=== PATIENT | female | born 1950 | race Caucasian/White ===

== ENCOUNTER 2016-08-09 14:00 | Outpatient (RCR) | payer MEDICARE, OTHER ==
[~2016-08-09 14:00] MED LIST: 00186-0372-20 IH; ACIPHEX20 MG PO; ADDERALL10 MG PO; ALBUTEROL0.83 MG/ML IH; AMOXICILLIN 50500 MG PO; AMOXICILLIN 8751 TAB PO; AMOXICILLIN875 MG PO; ATORVASTATIN; BACTROBAN 22GM22 GM TP; CELEXA40 MG PO; CLARITIN; DIFLUCAN150 MG PO; ENBREL25 MG SC; FLEXERIL10 MG PO; FLUOXETINE; FOLIC ACID0.4 MG PO; IRON324 M1 PO; LEVOTHYROXINE0.1 MG PO; LIPITOR 10MG10 MG PO; LORTAB 7.5/5001 TAB; MELAT3MGTAB PO; METHOTREXA2.5 MG/TAB PO; MOBIC15 MG PO; NORCO 325 MG-7.1 TAB PO; PEPCID40 MG PO; PERCOCET 325 MG1 TA2 PO; PERCOCET 5/321 UDTAB PO; PREDNISONE10 MG PO; PRIL40 PO; PROTONIX20 MG PO; PROZAC20 MG PO; SEPTRA DS 8001 TAB PO; SINGULAIR; SINGULAIR 110 MG/TAB PO; SINGULAIR10 MG PO; STRATTERA PO; SYNTHROID0.075 MG PO; SYNTHROID0.088 MG/T PO; TESSALON P100 MG/CAP PO; TOPAMAX25 M1 PO; TOPIRAMATE; TYLENOL 500MG500 MG PO; VERAPAMIL; VERAPAMIL ER240 MG PO; VERAPAMIL180 MG/TAB PO; VITAMIN C500 MG PO; ZINC LOZENGES1 LOZ MM; ZOMIG 2.5MG2.5 MG PO; [UNRECOGNIZED DRUG - OTHER]; [UNRECOGNIZED DRUG - REMARK]
== END 2016-08-31 10:43 | disposition still patient (30) ==
LOC: WSPT 14:00
DX: M54.5 Low back pain (principal)
CPT/HCPCS: G8978-GP; G8979-GP; G8980-GP

== ENCOUNTER → 2016-09-26 | Outpatient (CLI) | payer MEDICARE, OTHER ==
[~2016-09-26] MED LIST changes: +FLEXERIL 1010 MG/TAB PO; +MINOCYCLIN100 MG/CAP PO; +MOBIC15 MG; +PRILOSEC 20MG20 MG PO; +TIROSINT88 MC1 PO; +VERELAN240 MG PO; +WELLBUTRIN XL300 M1 PO; +ZOFRAN 4MG T4 MG/TAB PO
== END ==
LOC: ZCOL.LAB 16:15
DX: Z11.2 Encounter for screening for other bacterial diseases (principal)

== ENCOUNTER → 2016-12-05 | Outpatient (CLI) | payer MEDICARE, OTHER | LOC: BHSO 11:03 | DX: F33.1 Major depressive disorder, recurrent, moderate (principal) | CPT/HCPCS: 90791-AI ==

== ENCOUNTER → 2017-01-03 | Outpatient (CLI) | payer MEDICARE, OTHER | LOC: BHSO 09:58 | DX: F33.41 Major depressive disorder, recurrent, in partial remission (principal) ==

== ENCOUNTER → 2017-02-27 | Outpatient (CLI) | payer MEDICARE, OTHER | LOC: ZCOL.LAB 14:30 | DX: Z01.818 Encounter for other preprocedural examination (principal); Z86.14 Personal history of Methicillin resistant Staphylococcus aureus infection ==

== ENCOUNTER 2017-03-02 05:32 | Day surgery (SDC) | payer MEDICARE, OTHER ==
[~2017-03-02] VITALS: Ht 165.1 cm; Wt 87.3 kg
[2017-03-02] VITALS (7 sets, daily range): BP systolic 105–129; BP diastolic 50–75; PULSE 56–71; TEMP 97.7
[~2017-03-02 05:32] MED LIST changes: -FLEXERIL 1010 MG/TAB PO; -MINOCYCLIN100 MG/CAP PO; -MOBIC15 MG; -PRILOSEC 20MG20 MG PO; -TIROSINT88 MC1 PO; -VERELAN240 MG PO; -WELLBUTRIN XL300 M1 PO; -ZOFRAN 4MG T4 MG/TAB PO
[2017-03-02] MEDS ORDERED: PRILOSEC 20MG20 MG PO (05:57)
[2017-03-02] MEDS ORDERED: TIROSINT88 MC1 PO (05:57)
[2017-03-02] MEDS ORDERED: MINOCYCLIN100 MG/CAP PO ×2 (05:58→07:54)
[2017-03-02] MEDS ORDERED: LIPITOR 10MG10 MG PO (05:58)
[2017-03-02] MEDS ORDERED: SINGULAIR 110 MG/TAB PO (05:59)
[2017-03-02] MEDS ORDERED: MOBIC15 MG (05:59)
[2017-03-02] MEDS ORDERED: ZOMIG 2.5MG2.5 MG PO (06:00)
[2017-03-02] MEDS ORDERED: VERELAN240 MG PO (06:01)
[2017-03-02] MEDS ORDERED: WELLBUTRIN XL300 M1 PO (06:01)
[2017-03-02] MEDS ORDERED: FLEXERIL 1010 MG/TAB PO (06:02)
[2017-03-02] MEDS ORDERED: NORCO 325 MG-7.1 TAB PO (07:53)
[2017-03-02] MEDS ORDERED: ZOFRAN 4MG T4 MG/TAB PO (07:54)
== END 2017-03-02 10:20 | disposition home or self-care (01) ==
LOC: SDCO 05:32
DX: T81.4XXA Infection following a procedure, initial encounter (principal); M86.171 Other acute osteomyelitis, right ankle and foot; L97.519 Non-pressure chronic ulcer of other part of right foot with unspecified severity; Z98.1 Arthrodesis status; M06.9 Rheumatoid arthritis, unspecified; J45.909 Unspecified asthma, uncomplicated; M79.7 Fibromyalgia; I10 Essential (primary) hypertension; E78.00 Pure hypercholesterolemia, unspecified; E07.9 Disorder of thyroid, unspecified; Z96.651 Presence of right artificial knee joint; Z80.9 Family history of malignant neoplasm, unspecified; Z86.14 Personal history of Methicillin resistant Staphylococcus aureus infection
CPT/HCPCS: J0690; J2250; J2405; J2704; J3010; J7120

== ENCOUNTER → 2017-03-08 | Outpatient (CLI) | payer MEDICARE, OTHER ==
[~2017-03-08] MED LIST changes: +FLEXERIL 1010 MG/TAB PO; +MINOCYCLIN100 MG/CAP PO; +MOBIC15 MG; +PRILOSEC 20MG20 MG PO; +TIROSINT88 MC1 PO; +VERELAN240 MG PO; +WELLBUTRIN XL300 M1 PO; +ZOFRAN 4MG T4 MG/TAB PO
== END ==
LOC: BHSO 09:59
DX: F33.42 Major depressive disorder, recurrent, in full remission (principal)

== ENCOUNTER → 2017-05-09 | Outpatient (CLI) | payer MEDICARE, OTHER | LOC: MC.RAD 08:32 | DX: Z12.31 Encounter for screening mammogram for malignant neoplasm of breast (principal) ==

== ENCOUNTER → 2017-07-05 | Outpatient (CLI) | payer MEDICARE, OTHER | LOC: BHSO 08:28 | DX: F33.42 Major depressive disorder, recurrent, in full remission (principal) | CPT/HCPCS: G0463 ==

== ENCOUNTER → 2017-07-19 | Outpatient (CLI) | payer MEDICARE, OTHER | LOC: ZCOL.LAB 15:56 | DX: Z01.812 Encounter for preprocedural laboratory examination (principal); Z86.14 Personal history of Methicillin resistant Staphylococcus aureus infection ==

== ENCOUNTER → 2018-01-03 | Outpatient (CLI) | payer MEDICARE, OTHER | LOC: BHSO 10:02 | DX: F33.42 Major depressive disorder, recurrent, in full remission (principal) | CPT/HCPCS: G0463 ==

== ENCOUNTER → 2018-04-04 | Outpatient (CLI) | payer MEDICARE, OTHER | LOC: BHSO 09:18 | DX: F33.42 Major depressive disorder, recurrent, in full remission (principal) | CPT/HCPCS: G0463 ==

== ENCOUNTER → 2018-06-06 | Outpatient (CLI) | payer MEDICARE, OTHER | LOC: BHSO 09:25 | DX: F41.1 Generalized anxiety disorder (principal) | CPT/HCPCS: G0463 ==

== ENCOUNTER → 2018-08-28 | Outpatient (CLI) | payer MEDICARE, OTHER | LOC: BHSO 10:04 | DX: F41.1 Generalized anxiety disorder (principal) | CPT/HCPCS: G0463 ==

== ENCOUNTER → 2018-09-09 | Outpatient (CLI) | payer MEDICARE, OTHER | LOC: MC.RAD 07-29 10:15 | DX: Z12.31 Encounter for screening mammogram for malignant neoplasm of breast (principal) ==

== ENCOUNTER → 2018-12-18 | Outpatient (CLI) | payer MEDICARE, OTHER | LOC: BHSO 09:45 | DX: F33.42 Major depressive disorder, recurrent, in full remission (principal) | CPT/HCPCS: G0463 ==

== ENCOUNTER → 2019-07-08 | Outpatient (CLI) | payer MEDICARE, OTHER | LOC: BHSO 09:16 | DX: F33.42 Major depressive disorder, recurrent, in full remission (principal) | CPT/HCPCS: G0463 ==

== ENCOUNTER → 2020-02-13 | Outpatient (CLI) | payer MEDICARE, OTHER | LOC: BHSO 09:08 | DX: F33.41 Major depressive disorder, recurrent, in partial remission (principal) | CPT/HCPCS: G0463 ==

== ENCOUNTER 2020-02-21 19:41 | Inpatient (IN) | payer MEDICARE, MEDICAID ==
[~2020-02-21] VITALS: Ht 162.6 cm; Wt 84.7 kg
[2020-02-21 21:00] LABS: BASO # 0.1 (0.0-0.2); BASO % 0.8 % (0.0-2.0); EOS # 0.2 (0.0-0.7); GRAN # 6.4 (1.4-6.5); GRAN % 68.1 % (42.2-75.2); LYMPH # 1.8 (1.2-3.4); MEAN CELL VOLUME 65 fl (80.0-100.0); MEAN CORPUSCULAR HGB CONC 27 g/dl (33.0-37.0); MONO # 0.9 (0.1-0.6); MONO % 9.8 % (1.7-9.3); PLATELET COUNT 525 K/mm3 (130-400); RED BLOOD COUNT 3.32 M/mm3 (4.10-5.30)
[2020-02-21 21:08] LABS: HEMATOCRIT 21.5 % (37.0-47.0); HEMOGLOBIN 5.8 g/dl (12.5-16.0); MEAN CORPUSCULAR HEMOGLOBIN 17 pg (27.0-31.0)
[2020-02-21 21:12] LABS: ALBUMIN 3.7 gm/dL (3.5-5.0); BILIRUBIN,TOTAL 0.5 mg/dL (0.0-1.0); CALCIUM 9.1 mg/dL (8.4-10.2); CREATININE, serum 0.78 (0.52-1.25); POTASSIUM 3.6 mmol/L (3.4-5.0); TOTAL PROTEIN 7.3 gm/dL (6.4-8.2)
[2020-02-21] MEDS ORDERED: SEPTRA DS 8001 TAB PO ×2 (21:56)
[2020-02-21] MEDS ORDERED: SINGULAIR 110 MG/TAB PO (22:42)
[2020-02-21] MEDS ORDERED: CYMBALTA 60MG60 MG PO (22:42)
[2020-02-21] MEDS ORDERED: ATIVAN 0.50.5 MG/TAB PO (22:43)
[2020-02-21] MEDS ORDERED: ZOFRAN 4MG T4 MG/TAB PO (22:43)
[2020-02-21] MEDS ORDERED: NEOMYCIN/POLY B10 ML OT (22:44)
[2020-02-21] MEDS ORDERED: FLEXERIL 1010 MG/TAB PO (22:45)
[2020-02-21] MEDS ORDERED: ISOPTIN SR240 MG PO (22:45)
[2020-02-21] MEDS ORDERED: LIPITOR 10MG10 MG PO (22:45)
[2020-02-21] MEDS ORDERED: WELLBUTRIN SR150 M1 PO (22:46)
[2020-02-21] MEDS ORDERED: PRILOSEC 20MG20 MG PO (22:46)
[2020-02-21] MEDS ORDERED: SYNTHROID0.125 MG/T PO (22:47)
[2020-02-21] MEDS ORDERED: SYNTHROID0.075 MG/T PO (22:48)
[2020-02-21] MEDS ORDERED: ALEVE 220MG220 MG PO (22:48)
[2020-02-21] MEDS ORDERED: IMITREX100 MG PO (22:50)
[2020-02-21 23:40] LABS: IRON,SERUM 14 ug/dL (35-150)
[2020-02-21 23:50] LABS: TOTAL IRON BINDING CAPACITY 435 ug/dL (265-497)
[2020-02-22] VITALS (17 sets, daily range): BP systolic 115–175; BP diastolic 48–94; PULSE 69–95; TEMP 98.1–99.9
--- NOTE | 2020-02-22 02:38 | NUR ---
Vancomycin Initial Dosing Pharmacy Note Ordering provider: Zelalem Kirkland MD Indication/duration: Cellulitis w/ hx of MRSA Relevant comorbidities: N/A LABS: WBC = 9.4, SCr = 0.78, Hgb = 5.6 Recommendation: Will order trough and follow results. Loading dose: 2 grams Maintenance dose: 1.5 grams every 12 hours Trough goal: 10-15 ug/mL
[2020-02-22 05:15] LABS: BASO # 0.1 (0.0-0.2); BASO % 1.1 % (0.0-2.0); EOS # 0.2 (0.0-0.7); EOS % 2.4 % (0-4.0); GRAN # 4.4 (1.4-6.5); LYMPH # 1.8 (1.2-3.4); LYMPH % 23.9 % (20.0-51.0); MEAN CELL VOLUME 68 fl (80.0-100.0); MEAN CORPUSCULAR HGB CONC 28 g/dl (33.0-37.0); MEAN PLATELET VOLUME 9.8 fl (7.4-10.4); MONO % 13.3 % (1.7-9.3); PLATELET COUNT 456 K/mm3 (130-400); RED BLOOD COUNT 3.35 M/mm3 (4.10-5.30); REDCELL DISTRIBUTION WIDTH-CV 21.2 % (11.5-14.5)
[2020-02-22 05:25] LABS: CALCIUM 8.3 mg/dL (8.4-10.2); CREATININE, serum 0.63 (0.52-1.25); POTASSIUM 3.2 mmol/L (3.4-5.0)
[2020-02-22 05:29] LABS: HEMATOCRIT 22.6 % (37.0-47.0); HEMOGLOBIN 6.3 g/dl (12.5-16.0); MEAN CORPUSCULAR HEMOGLOBIN 19 pg (27.0-31.0)
--- NOTE | 2020-02-22 09:47 | NUR ---
BLOOD BACNK CALLED REGARDING UN-READY UNIT OF BLOOD RODERED FOR PT. WILL MAKE READY AND NOTIFY. HGB 6.3 THIS AM. PHARMACY ALSO CALLED REGARDING MISSED SECOND DOSE OF VANCO BY DATABASE DBA. WILL RESCHEDULE AND RE-DOSE.
--- NOTE | 2020-02-22 15:50 | NUR ---
SCARLETT met with patient at her bedside. Patient reports that she lives in [place] with her daughter Jimi [phone] as her care support and EMr. Patient reports being independent with ADL's, and she does not currently have a dPOA. Patient reports that she does not use any DME's and her PCP is Dr. Urena. Patient reports that she does have an upcoming appointment on February 23, and that she gets her medications from [facility] with no concerns. patient declined Home health services at this time. She did request a DPOA form to review. SW left a copy for patient as requested. No additional concerns noted at this time.
--- NOTE | 2020-02-22 15:54 | NUR ---
SW met with patient at his bedside. Patient reports that he currently lives in [facility] alone with his ex- Erendira [phone] as his EMR. Patient reports that he does have a dPOA, and that he was independant with ADL. patient reports that he does not use any DME's and that his PCP is at [facility]. Patient reports he has an appointment on February 26. Patient reports that he received his medications by mail with no concerns. SW was present when HOspitalist stopped by to discuss discharge tomorrow. Patient continues to be concerned about his minor daughter who is at home. Hospitalist discussed possible discharge tomorrow, depending on patients status. SW concerned about transportation for patient as he claimed to be able to see out of one eye, and that he continues to drive.
--- NOTE | 2020-02-22 16:28 | NUR ---
SPOKE TO PT ABOUT ORDER FOR ENDO/COLO AND SHE STATED SHE WOULD NOT DO IT BECAUSE SHE FELT SHE WAS NOT DIRECTLY ASKED IF SHE WANTED THE PROCEDURE BUT IT WAS INSTEAD "MENTIONED IN PASSING". DR ROPER CAME BACK INTO ROOM TO SPEAK TO PT ABOUT PLAN. PT THEN AGREED TO HAVE ENDO PERFORMED. PT EDUCATED ON BOWEL PREP FOR COLONOSCOPY AND SHE ADAMANTLY REFUSED STATING SHE HATES BOWEL PREP AND WILL NOT SUBJECT HERSELF TO THE TORTURE. SHE NOW STATES SHE IS "NOT IN THE RIGHT MIND FOR SUCH A PROCEDURE". SHE UNDERSTANDS THE RISK OF UNDIAGNOSED POTENTIAL BLEED WITH HER LOW HEMOGLOBIN AND WEEKS OF FATIGUE. STATES SHE WANTS TO SPEAK TO HER "BLOOD DOCTOR" [facility] [place] BEFORE ANY INTERVENTIONS. REMINDED OF HOLIDAY TOMORROW, VERBALIZES UNDERSTANDING. THIS NURSE MADE PT AWARE I WILL LEAVE BOWEL PREP AT BEDSIDE IN CASE SHE CHANGES HER MIND. PT STATES HER END GOAL IS GOING HOME AND TAKING CARE OF GRANDKIDS. CONSENT NOT SIGNED AT THIS TIME.
--- NOTE | 2020-02-22 18:33 | NUR ---
BLOOD TRANSFUSION COMPLETE @ 1831. H&H ORDERED 6 HRS POST @ 0030. PT MADE AWARE
--- NOTE | 2020-02-22 20:08 | NUR ---
Pt assessment completed and charted, alert, oriented, roomair, independent. Pt refused to sign the consent for her scheduled EDG and Colonescopy for 02/23/2020. Informed the Gastrologist. Pt is settled on her bed, call light on reach. Pt is watching TV, no further needs at this time.
[2020-02-23 00:09] VITALS: BP 138/52; PULSE 79; TEMP 98.5
[2020-02-23 00:39] LABS: HEMATOCRIT 25.7 % (37.0-47.0); HEMOGLOBIN 7.4 g/dl (12.5-16.0)
[2020-02-23 03:21] VITALS: BP 114/69; PULSE 75; TEMP 98.6
--- NOTE | 2020-02-23 05:00 | NUR ---
Pt had an uneventful night, slept through out the night. Call light on reach, no further needs at this time.
[2020-02-23 08:00] VITALS: BP 149/66; PULSE 79; TEMP 98.3
--- NOTE | 2020-02-23 08:05 | NUR ---
BEDSIDE REPORT GIVEN. PT STATED SHE CHANGED HER MIND AND WOULD NOT LIKE EITHER EGD OR COLONOSCOPY DONE UNTIL AFTER SHE SEES HER PCP DR GARCIA TOMORROW 02/23 @ 7447 FOR LAB AND CXR. DIET PUT BACK ON SHE WAS NPO FOR PROCEDURE. DENIED PAIN WITH REDUCED LT EAR TENDERNESS
[2020-02-23 08:07] VITALS: BP 139/50; PULSE 86; TEMP 97.8
--- NOTE | 2020-02-23 08:26 | NUR ---
MORNING MEDS GIVEN. LT EAR OUTSIDE YELLOW DRAINAGE CLEANED OFF AND NOW APPEARS RED, SLIGHTLY EDEMATOUS WITH LITTLE TO NO PAIN. 2 PINPOINT OPENINGS. VSS. STEADY INDEPENDENT AMBULATION. REPORTS IMPROVED STRENGTH AND HOPES TO DC HOME TODAY
[2020-02-23] MEDS ORDERED: BACTRIM DS 8001 TAB PO (09:16)
[2020-02-23 09:25] LABS: BASO # 0.1 (0.0-0.2); BASO % 1.3 % (0.0-2.0); EOS # 0.2 (0.0-0.7); EOS % 2.3 % (0-4.0); GRAN # 4.6 (1.4-6.5); GRAN % 65.8 % (42.2-75.2); LYMPH # 1.3 (1.2-3.4); LYMPH % 17.8 % (20.0-51.0); MEAN CELL VOLUME 70 fl (80.0-100.0); MEAN CORPUSCULAR HGB CONC 29 g/dl (33.0-37.0); MEAN PLATELET VOLUME 9.7 fl (7.4-10.4); MONO # 0.9 (0.1-0.6); MONO % 12.7 % (1.7-9.3); PLATELET COUNT 437 K/mm3 (130-400); RED BLOOD COUNT 3.89 M/mm3 (4.10-5.30); REDCELL DISTRIBUTION WIDTH-CV 22.1 % (11.5-14.5)
[2020-02-23 09:28] LABS: HEMATOCRIT 27.4 % (37.0-47.0); HEMOGLOBIN 7.9 g/dl (12.5-16.0); MEAN CORPUSCULAR HEMOGLOBIN 20 pg (27.0-31.0)
[2020-02-23 09:38] LABS: CALCIUM 8.8 mg/dL (8.4-10.2); CREATININE, serum 0.55 (0.52-1.25); POTASSIUM 3.6 mmol/L (3.4-5.0)
[2020-02-23 11:25] VITALS: BP 127/55; PULSE 84; TEMP 98.5
--- NOTE | 2020-02-23 14:12 | NUR ---
PT DSICHARGE TO HOME ACCOMPANIED BY DAUGHTER @ 5300. AMBULATED OUT BUILDING. REPORTED SOME CHRONIC SCIATICA. MILD SOB NOTED PT STATES IS HER NORM. TOLERATED AMBULATION WELL. DISCHARGE INSTRUCTIONS GIVEN. ALL QUESTIONS ANSWERED.
== END 2020-02-23 13:30 | disposition home or self-care (01) | DRG 812 ==
LOC: COL.ER 19:41 → MEDICAL 23:28
PROVIDERS: Hospitalist; Internal Medicine Gastroenterology; Nurse Practitioner Family; Physician Assistant; ADMIT Internal Medicine Pulmonary Disease
DX: D50.9 Iron deficiency anemia, unspecified (principal); I10 Essential (primary) hypertension; E78.5 Hyperlipidemia, unspecified; M06.9 Rheumatoid arthritis, unspecified; K21.9 Gastro-esophageal reflux disease without esophagitis; E03.9 Hypothyroidism, unspecified; F41.9 Anxiety disorder, unspecified; F32.9 Major depressive disorder, single episode, unspecified; H60.12 Cellulitis of left external ear; D47.3 Essential (hemorrhagic) thrombocythemia; E87.6 Hypokalemia; D47.2 Monoclonal gammopathy; Z88.1 Allergy status to other antibiotic agents
CPT/HCPCS: 99223-AI; 99232-AI; 99239; J3370; J7050; P9016

== ENCOUNTER 2020-03-10 11:00 | Outpatient (RCR) | payer MEDICARE, MEDICAID ==
[2020-03-05 13:18] VITALS: BP 139/62; PULSE 78; TEMP 98
[2020-03-08 07:57] VITALS: BP 126/71; PULSE 71; TEMP 98.5
[~2020-03-10] VITALS: Ht 162.6 cm; Wt 84.3 kg
[~2020-03-10 11:00] MED LIST changes: +ALEVE 220MG220 MG PO; +ATIVAN 0.50.5 MG/TAB PO; +BACTRIM DS 8001 TAB PO; +CYMBALTA 60MG60 MG PO; +IMITREX100 MG PO; +ISOPTIN SR240 MG PO; +NEOMYCIN/POLY B10 ML OT; +SYNTHROID0.075 MG/T PO; +SYNTHROID0.125 MG/T PO; +WELLBUTRIN SR150 M1 PO
[2020-03-10 11:33] VITALS: BP 134/60; PULSE 72; TEMP 98.3
== END 2020-03-10 12:45 | disposition home or self-care (01) ==
LOC: EUO 11:00
DX: D50.8 Other iron deficiency anemias (principal)
CPT/HCPCS: J2916

== ENCOUNTER → 2020-04-14 | Outpatient (CLI) | payer MEDICARE, MEDICAID | LOC: BHSO 10:39 | DX: F33.42 Major depressive disorder, recurrent, in full remission (principal) | CPT/HCPCS: G0463 ==

== ENCOUNTER 2020-07-13 14:19 | Outpatient (CLI) | payer MEDICARE, MEDICAID ==
[~2020-07-13] VITALS: Ht 162.6 cm; Wt 84.0 kg
[~2020-07-13 14:19] MED LIST changes: +PRILOSEC10 MG PO; -SYNTHROID0.075 MG/T PO
[2020-07-13 14:40] VITALS: BP 135/74; PULSE 87; TEMP 98.6
[2020-07-13] MEDS ORDERED: FOLIC ACID0.4 MG PO (14:53)
[2020-07-13] MEDS ORDERED: MOBIC 7.5MG7.5 MG PO (14:54)
[2020-07-13] MEDS ORDERED: TOPAMAX 25MG25 M1 PO (15:00)
[2020-07-13] MEDS ORDERED: RITUXAN 10100 MG/10 IV (15:01)
[2020-07-13] MEDS ORDERED: 00186-0372-20 IH (15:02)
[2020-07-13] MEDS ORDERED: ZYRTEC 10MG10 MG PO (15:03)
[2020-07-13 15:05] VITALS: BP 133/79; PULSE 82
[2020-07-13 15:30] VITALS: BP 137/76; PULSE 82
[2020-07-13 16:00] VITALS: BP 145/85; PULSE 81
--- NOTE | 2020-07-13 16:04 | NUR ---
Infusion completed.Pt resting in chair,denies needs at this time.
[2020-07-13 16:30] VITALS: BP 157/75; PULSE 78
[2020-07-13 17:00] VITALS: BP 152/81; PULSE 82; TEMP 98.3
--- NOTE | 2020-07-13 17:38 | NUR ---
Pt escorted out by this nurse via ambulatory.
== END 2020-07-13 17:38 | disposition home or self-care (01) ==
LOC: EUO 14:19
DX: U07.1 COVID-19 (principal)
CPT/HCPCS: J7050

== ENCOUNTER 2020-10-08 15:00 | Outpatient (RCR) | payer MEDICARE, MEDICAID ==
[2020-09-22 16:27] VITALS: BP 153/80; PULSE 87; TEMP 98.5
[2020-10-01 15:53] VITALS: BP 132/76; PULSE 76; TEMP 98.7
[~2020-10-08] VITALS: Ht 162.6 cm; Wt 85.0 kg
[~2020-10-08 15:00] MED LIST changes: +MOBIC 7.5MG7.5 MG PO; +RITUXAN 10100 MG/10 IV; +TOPAMAX 25MG25 M1 PO; +ZYRTEC 10MG10 MG PO
[2020-10-08 15:14] VITALS: BP 122/78; PULSE 81; TEMP 98.5
== END 2020-10-08 16:08 | disposition home or self-care (01) ==
LOC: EUO 15:00
DX: D50.8 Other iron deficiency anemias (principal); Z79.899 Other long term (current) drug therapy
CPT/HCPCS: J1756

== ENCOUNTER 2021-05-18 12:20 | Inpatient (IN) | payer MEDICARE, MEDICAID ==
[~2021-05-18] VITALS: Ht 162.6 cm; Wt 85.2 kg
[2021-05-18 13:15] LABS: BASO # 0.1 K/mm3 (0.0-0.2); BASO % 0.4 % (0.0-2.0); GRAN # 19.3 K/mm3 (1.4-6.5); GRAN % 89.9 % (42.2-75.2); HEMATOCRIT 42.5 % (37.0-47.0); HEMOGLOBIN 13.4 g/dl (12.5-16.0); LYMPH # 0.6 K/mm3 (1.2-3.4); LYMPH % 2.7 % (20.0-51.0); MEAN CELL VOLUME 89 fl (80.0-100.0); MEAN CORPUSCULAR HEMOGLOBIN 28 pg (27.0-31.0); MEAN CORPUSCULAR HGB CONC 32 g/dl (33.0-37.0); MEAN PLATELET VOLUME 9.5 fl (7.4-10.4); MONO # 1.4 K/mm3 (0.1-0.6); MONO % 6.3 % (1.7-9.3); PLATELET COUNT 301 K/mm3 (130-400); RED BLOOD COUNT 4.77 M/mm3 (4.10-5.30); REDCELL DISTRIBUTION WIDTH-CV 14.6 % (11.5-14.5)
[2021-05-18 13:39] LABS: ALBUMIN 3.5 gm/dL (3.4-4.8); BILIRUBIN,TOTAL 0.8 mg/dL (0.2-1.2); C-REACTIVE PROTEIN 2.62 mg/dL (0.00-0.50); CALCIUM 8.6 mg/dL (8.4-10.2); CREATININE, serum 0.8 mg/dL (0.57-1.11); TOTAL PROTEIN 7.4 gm/dL (6.2-8.1)
[2021-05-18 13:53] LABS: ERYTHROCYTE SEDIMENTATION RATE 2 mm/hr (0-30)
[2021-05-18 16:29] LABS: SYNOVIAL FL. MONONUCLEAR 14.3 % (0-75); SYNOVIAL FLUID RBC 0 /mm3 (0-0)
[2021-05-18 16:34] LABS: SYNOVIAL FLUID COLOR YELLOW; SYNOVIAL FLUID WBC 49200 /mm3 (200-600)
[2021-05-18 16:35] LABS: SYNOVIAL FLUID APPEARANCE HAZY
--- NOTE | 2021-05-18 18:15 | NUR ---
Vancomycin Initial Dosing Pharmacy Note Ordering provider: Georgina Indication/duration: septic knee, 7 days LABS: SCr 0.8, CrCl~58, GFR 71 Recommendation: Give Vancomycin 1.5 gm IV x1 loading dose, then Vancomycin 1.25 gm IV q12h. Pharmacy will continue to closely monitor and check a Vancomycin trough on 05/20/21. Loading dose: 1.5 grams Maintenance dose: 1.25 grams every 12 hours Trough goal: 15-20 ug/mL
[2021-05-18 18:41] LABS: COLLECTION METHOD CLEAN CATCH
[2021-05-18 19:00] LABS: MUCOUS Present (NOT PRESENT); PH 7 (5-8); SQUAMOUS EPITHELIAL None Seen /hpf (0-10); URINE APPEARANCE Clear (CLEAR/HAZY); URINE BACTERIA Rare (NONE SEEN); URINE BILIRUBIN Negative (NEGATIVE); URINE BLOOD Negative (NEGATIVE); URINE COLOR Yellow (YELLOW); URINE GLUCOSE Negative (NEGATIVE); URINE KETONE Negative (NEGATIVE); URINE LEUKOCYTE ESTERASE Negative (NEGATIVE); URINE NITRATE Negative (NEGATIVE); URINE PROTEIN(semi-quant) Negative (NEGATIVE)
[2021-05-19] VITALS (7 sets, daily range): BP systolic 89–134; BP diastolic 49–83; PULSE 79–113; TEMP 97.9–99.7
[2021-05-19] MEDS ORDERED: TESSALON P100 MG/CAP PO (00:48)
[2021-05-19] MEDS ORDERED: MOBIC15 MG PO (00:49)
[2021-05-19] MEDS ORDERED: CYMBALTA 60MG60 MG PO (00:50)
[2021-05-19] MEDS ORDERED: PRILOSEC 20MG20 MG PO (00:50)
[2021-05-19] MEDS ORDERED: PROAIR HFA0.09 MG/AC IH (00:50)
[2021-05-19] MEDS ORDERED: SINGULAIR 110 MG/TAB PO (00:51)
[2021-05-19] MEDS ORDERED: WELLBUTRIN XL150 MG PO (00:52)
[2021-05-19] MEDS ORDERED: VERELAN240 MG PO (00:53)
[2021-05-19] MEDS ORDERED: MUCUS RELIEF400 M1 PO (00:54)
[2021-05-19] MEDS ORDERED: LIPITOR20 MG PO (00:54)
[2021-05-19] MEDS ORDERED: LEVOXYL0.075 MG PO (00:56)
[2021-05-19] MEDS ORDERED: IMITREX100 MG PO (00:57)
[2021-05-19] MEDS ORDERED: ULTRAM 50MG TAB50 MG PO (00:57)
[2021-05-19 03:11] LABS: INR 1.3 (0.8-3.0); PROTHROMBIN TIME 14.2 SECONDS (9.7-12.8)
--- NOTE | 2021-05-19 06:06 | NUR ---
PT ARRIVED TO ROOM FROM ED @ 0035. PT WAS IN PAIN FROM RIGHT KNEE ET FELT NAUSEOUS. DRESSING INTACT TO RIGHT KNEE. Dionte VICTOR APRN WAS IN ROOM WITH PT UPON ARRIVAL ET REVIEWED MEDICATIONS. PT STATES THAT SHE LIVES ALONE ET HAD BEGUN TO FEEL SICK ON SUNDAY. JOSE VARMA PLACED R/T PT BEING UNABLE TO WALK ET PT REFUSING TO USE BEDPAN. PT IS GIVEN DIET PEPSI PER REQUEST, OKAYED BY Dionte VICTOR APRN, THEN BECAME NPO AFTER 0200. PT HAS NOT URINATED. ED NURSE REPORTS THAT PT HAD VOIDED IN ED BEFORE COMING TO FLOOR. IVF INFUSING. PAIN MEDICATION ADMINISTERED. PT EDUCATED ON FALL PRECAUTIONS ET CALL LIGHT, DEMONSTRATES UNDERSTANDING. PT IS SLEEPING IN BED @ THIS TIME. RESPIRATIONS ARE UNLABORED. CALL LIGHT WITHIN REACH.
[2021-05-19 06:59] LABS: MEAN CELL VOLUME 88 fl (80.0-100.0); MEAN CORPUSCULAR HGB CONC 32 g/dl (33.0-37.0); MEAN PLATELET VOLUME 10.2 fl (7.4-10.4); PLATELET COUNT 244 K/mm3 (130-400); RED BLOOD COUNT 3.94 M/mm3 (4.10-5.30); REDCELL DISTRIBUTION WIDTH-CV 14.7 % (11.5-14.5)
--- NOTE | 2021-05-19 07:04 | NUR ---
Pt. progressing w/ plan of care. Pt. resting in bed and denies needs at this time. This RN introduced self to patient. Plan for pt. to get ABX this AM. Needs addressed, call light in reach.
[2021-05-19 07:13] LABS: HEMATOCRIT 34.8 % (37.0-47.0); HEMOGLOBIN 11.1 g/dl (12.5-16.0); MEAN CORPUSCULAR HEMOGLOBIN 28 pg (27.0-31.0)
[2021-05-19 07:15] LABS: CALCIUM 7.5 mg/dL (8.4-10.2); CREATININE, serum 0.85 mg/dL (0.57-1.11); POTASSIUM 3.6 mmol/L (3.5-4.5)
--- NOTE | 2021-05-19 07:17 | NUR ---
New critical WBC count resulted. Dr. Erickson notified on the telephone. Plan for vanco and zosyn to be administered this AM.
--- NOTE | 2021-05-19 08:00 | NUR ---
Pt. progressing w/ plan of care. Pt. reports headache pain and knee pain. PRN tylenol administered. AM meds given and assessment complete. Pt. oriented to telephone and call light use. Purewick in place. Plan for lumbar puncture today around 1000. This was discussed with the patient. This RN spoke w/ pharmacist Dottie regarding pt.'s scheduled zosyn and vanco. Dottie reports zosyn is safe to be administered y-sited w/ vanco. Pt. denies further needs at this time, call light in reach.
[2021-05-19 08:02] LABS: BAND 38 % (0-10); METAMYELOCYTE 3 % (0-0); NEUTROPHILS 55 % (42.0-75.2); PLATELET ESTIMATE NORMAL (NORMAL)
--- NOTE | 2021-05-19 10:18 | NUR ---
s iron worker met with patient to discuss discharge plan. Patient reports that she lives at home alone in [facility] but that her grandchildren and daughter are always in and out. Patient reports that she is independent with her ADL's and that she uses a cane to help ambulate around her home when needed. Reports to no oxygen needs. PCP is and she utilizes [facility] for medications with no cost difficulty. Patient would like to return home post dc. Patient states that she does not have a DPOA-HC established and is not interested in one at this time. Patient's "daughter" Jimi ([phone]) is actually her granddaughter that she has raised since she was a baby. After education patient verbalizes that she still does not wish to create a DPOA-HC, but that if needed we would call her daughter Tomorrow ([phone]) first who can then get with her other children. Discharge plan: Home- Pending PT/OT katerin
--- NOTE | 2021-05-19 10:55 | NUR ---
Pt. at MRI. Morphine and zofran given with good effect.
--- NOTE | 2021-05-19 14:30 | NUR ---
Pt.'s potassium level today borderline low. MICHAEL Murillo notified, no new orders obtained at this time. Pt. resting in bed w/ eyes closed. IVF infusing. Pt. reports feeling better today but she would "just like to sleep." Needs addressed, call light in reach.
--- NOTE | 2021-05-19 18:16 | NUR ---
Call from Dr. Erickson with concerns regarding pt.'s streptococcus pneumoniae in knee culture. Dr. Ansari called, Dr. Ansari in surgery right now. Message left for Dr. Ansari regarding pt.'s knee culture, plan for Dr. Ansari to call back night hospitalist COURT TRANSCRIBER Crystal Glover, phone number provided.
[2021-05-20] VITALS (7 sets, daily range): BP systolic 121–152; BP diastolic 50–61; PULSE 71–82; TEMP 97.5–98.4
--- NOTE | 2021-05-20 02:02 | NUR ---
PERIPHERAL IV IN PT'S RIGHT AC BEGAN LEAKING WHEN FLUSHED AFTER IV VANCOCIN WAS COMPLETED INFUSING. PT DENIES PAIN IN ARM. NO REDNESS OR SIGNS OF INFILTRATION SEEN. THIS NURSE ATTEMPTS X2 UNSUCCESSFULLY TO INSERT NEW IV INTO PT'S LEFT ARM. HIGHWAY SAFETY ENGINEER NOTIFIED ET IS ABLE TO INSERT 22G IV INTO PT'S RIGHT HAND.
--- NOTE | 2021-05-20 06:49 | NUR ---
bedside shift report received from SKIP Lainez
[2021-05-20 07:21] LABS: BASO # 0.1 K/mm3 (0.0-0.2); BASO % 0.4 % (0.0-2.0); EOS % 0.2 % (0-4.0); GRAN # 16.3 K/mm3 (1.4-6.5); GRAN % 89.3 % (42.2-75.2); HEMOGLOBIN 11.3 g/dl (12.5-16.0); LYMPH # 0.7 K/mm3 (1.2-3.4); MEAN CELL VOLUME 89 fl (80.0-100.0); MEAN CORPUSCULAR HEMOGLOBIN 28 pg (27.0-31.0); MEAN CORPUSCULAR HGB CONC 31 g/dl (33.0-37.0); MEAN PLATELET VOLUME 10.1 fl (7.4-10.4); MONO # 0.9 K/mm3 (0.1-0.6); MONO % 5.1 % (1.7-9.3); PLATELET COUNT 213 K/mm3 (130-400); RED BLOOD COUNT 4.07 M/mm3 (4.10-5.30)
[2021-05-20 07:28] LABS: CALCIUM 8.4 mg/dL (8.4-10.2); CREATININE, serum 0.64 mg/dL (0.57-1.11); POTASSIUM 3.3 mmol/L (3.5-4.5)
--- NOTE | 2021-05-20 09:08 | NUR ---
vascular lab in and echo being completed
--- NOTE | 2021-05-20 09:30 | NUR ---
Dr Erickson and care team were in to see patitkn, she is feeling better now and having some toast and provided milk per her request, full assessment completed, see interventions for further info
--- NOTE | 2021-05-20 11:27 | NUR ---
patient called stating she thinks she was having an allergic reaction to the antibiotic she received earlier, no rash or itching she just states she doesn't feel good and her stomach is upset and she feels hot and sweat, skin feels warm and dry to touch, will provide sprite as she thinks this helps her stomach upset, MICHAEL Murillo notified, antibiotic given earlier has been discontinued and patient informed of this
--- NOTE | 2021-05-20 12:57 | NUR ---
in bed and appears to be sleeping, lights off, eyes closed, resp quiet and easy
--- NOTE | 2021-05-20 13:30 | NUR ---
assisted up to bedside commode and voided and had bowel movement, is able to raise right leg, then back to bed, bedside shift report given to SKIP Jiang
--- NOTE | 2021-05-20 13:52 | NUR ---
Received report from SKIP Matson. To take over care the remainder of shift.
--- NOTE | 2021-05-20 14:55 | NUR ---
ASSESSMENT COMPLETED. PT ALERT AND ORIENTED. PT HAS CLEAR LUNGS TO AUSCULTATION. PT S1,S2 SOUNDS HEARD. ACTIVE BOWEL SOUNDS WITH SOME TENDERNESS TO PALPATION AND NAUSEA REPORTED. PT RIGHT KNEE INFECTION, SWOLLEN, WARM TO TOUCH. PT HAS CALLOUSES ON BILATERAL SOLES OF FEET, PT STATES PADDED FOR COMFORT. PT CAP REFILL <3S, POSTERIOR TIBIAL PULSE 1+ BILATERALLY. RADIAL AND DORSALIS PEDIS PULSES 2+ BILATERALLY. PT ABLE TO AMBULATE TO BEDSIDE COMMODE HAD ONE BOUT OF LOOSE FORMED STOOL. CLEANED WITH WIPES. PT CALL LIGHT WITHIN REACH. REFUSING TYLENOL AT THIS TIME.
--- NOTE | 2021-05-20 16:36 | NUR ---
PT BLOOD PRESSURE ELEVATED FROM 1200 COLLECTION. PT UPSET UPON ENTRY TO CHECK ON PT. THERAPEUTIC COMMUNICATION UTILIZED. WILL CONTINUE TO MONITOR.
--- NOTE | 2021-05-20 18:29 | NUR ---
PT DID NOT ORDER DINNER, ORDERED SALTINE CRACKERS AND TEA
--- NOTE | 2021-05-20 19:06 | NUR ---
Pt continuing on plan of care. Pt continues to report stomach pains, continues to request oxycodone, education provided on side effects of narcotics to best of ability. Pt able to ambulate to chair with fall precautions and walker utilized. Report given to night custodian.
--- NOTE | 2021-05-21 01:42 | NUR ---
PT AWAKE, CONFUSED, ANXIOUS ET IMPULSIVE. PT REPEATEDLY STATES CAN I LEAVE NOW ET ATTEMPTS TO LEAVE BED ON OWN. BED ALARM IS ON. PT REQUIRED SITTER EARLIER R/T FREQUENCY OF PT LEAVING BED. PT HAD ALSO BEEN TRYING TO LEAVE BED WHEN FAMILY WAS PRESENT EARLIER IN NIGHT. FAMILY HAD TOLD PT THAT SHE NEEDED TO STAY HERE TONIGHT BUT PT IS UNABLE TO COMPREHEND. PT HAS BEEN UP TO BR TO VOID MULTIPLE TIMES WITH 1 ASSIST, HAS HAD 2 LOOSE STOOLS ET 1 FORMED INCONTINENT STOOL. PT DENIES ANY PAIN WHEN ASKED. PT HAS PRODUCTIVE COUGH WITH CLEAR THICK SPUTUM EXPECTORATED. PT HAS BEEN TAKEN AROUND UNIT IN IN ATTEMPTS TO LESSEN RESTLESSNESS WITHOUT SUCCESS. Dionte VICTOR APRN WAS NOTIFIED OF PT'S STATUS. NEW ORDERS WERE RECEIVED. BOTH MELATONIN ET SEROQUEL HAVE BEEN ADMINISTERED, PT CONTINUES TO BE RESTLESS. PT REPEATEDLY STATES WHAT SHOULD I DO. PT IS ENCOURAGED TO SLEEP BUT QUICKLY FORGETS.
[2021-05-21 04:18] VITALS: BP 131/62; PULSE 70; TEMP 98.2
--- NOTE | 2021-05-21 06:09 | NUR ---
PT RESTING QUIETLY IN BED, STATES THAT SHE IS FEELING BETTER ET IS READY TO EAT BREAKFAST. PT HAD REFUSED PO SINGULAIR ET LIPITOR @ BEDTIME R/T NOT EATING ET HAVING AN UPSET STOMACH, HAD REQUESTED TUMS ET WAS ADMINISTERED. PT HAS BEEN UP TO BR MULTIPLE TIMES TO VOID WITH 1 ASSIST, STATES THAT PAIN IN RIGHT LEG IS MUCH BETTER BUT HER CHRONIC SCIATIC PAIN IN LEFT LEG IS WHAT IS BOTHERING HER NOW. SCHEDULED TYLENOL ADMINISTERED. RESPIRATIONS UNLABORED, CALL LIGHT WITYHIN REACH.
[2021-05-21 06:31] LABS: BASO % 0.2 % (0.0-2.0); EOS % 0.1 % (0-4.0); GRAN # 13.3 K/mm3 (1.4-6.5); GRAN % 87.8 % (42.2-75.2); HEMOGLOBIN 10.7 g/dl (12.5-16.0); LYMPH # 0.9 K/mm3 (1.2-3.4); LYMPH % 5.7 % (20.0-51.0); MEAN CELL VOLUME 87 fl (80.0-100.0); MEAN CORPUSCULAR HEMOGLOBIN 28 pg (27.0-31.0); MEAN CORPUSCULAR HGB CONC 32 g/dl (33.0-37.0); MEAN PLATELET VOLUME 10.6 fl (7.4-10.4); MONO # 0.9 K/mm3 (0.1-0.6); MONO % 5.7 % (1.7-9.3); PLATELET COUNT 199 K/mm3 (130-400); RED BLOOD COUNT 3.79 M/mm3 (4.10-5.30); REDCELL DISTRIBUTION WIDTH-CV 14.9 % (11.5-14.5)
[2021-05-21 06:42] LABS: HEMATOCRIT 33.1 % (37.0-47.0)
[2021-05-21 06:43] LABS: CALCIUM 8.2 mg/dL (8.4-10.2); CREATININE, serum 0.6 mg/dL (0.57-1.11); POTASSIUM 3.7 mmol/L (3.5-4.5)
[2021-05-21 08:00] VITALS: BP 141/60; PULSE 70; TEMP 98.2
[2021-05-21 11:17] VITALS: BP 137/36; PULSE 83; TEMP 98
--- NOTE | 2021-05-21 11:25 | NUR ---
Patient alert and oriented, answers questions appropriately. See assessment. Right knee with 2+ edema noted, slightly red, no drainage. Pulses palpable to BLE, sensation intact, no c/o numbness or tingling. FWB. Patient c/o nausea and generalized weakness, contributes these to not having adequate oral intake for a few days. ROM exercises reviewed with patient. No c/o at this time.
[2021-05-21 15:53] VITALS: BP 114/68; PULSE 70; TEMP 98.5
[2021-05-21 19:32] VITALS: BP 130/52; PULSE 73; TEMP 97.9
[2021-05-21 23:35] VITALS: BP 131/58; PULSE 70; TEMP 98.4
[2021-05-22 03:57] VITALS: BP 124/60; PULSE 77; TEMP 97.9
--- NOTE | 2021-05-22 04:46 | NUR ---
RESTING QUIETLY/SLEEPING. NO N/V. OXYCODONE AT H.S. FOR RLE DISCOMFORT. PT INDEPENDENT IN ROOM. RT KNEE REMAINS EDEMATOUS. NO REDNESS OR UNUSUAL WARMTH NOTED TO RLE.
[2021-05-22 06:37] LABS: BASO % 0.2 % (0.0-2.0); EOS % 0.1 % (0-4.0); GRAN # 10.5 K/mm3 (1.4-6.5); GRAN % 86.2 % (42.2-75.2); LYMPH # 0.9 K/mm3 (1.2-3.4); MEAN CELL VOLUME 85 fl (80.0-100.0); MEAN CORPUSCULAR HEMOGLOBIN 27 pg (27.0-31.0); MEAN CORPUSCULAR HGB CONC 32 g/dl (33.0-37.0); MEAN PLATELET VOLUME 11.4 fl (7.4-10.4); MONO # 0.7 K/mm3 (0.1-0.6); PLATELET COUNT 205 K/mm3 (130-400); RED BLOOD COUNT 4.01 M/mm3 (4.10-5.30); REDCELL DISTRIBUTION WIDTH-CV 15.2 % (11.5-14.5)
[2021-05-22 07:04] LABS: CALCIUM 8.8 mg/dL (8.4-10.2); CREATININE, serum 0.61 mg/dL (0.57-1.11); POTASSIUM 4.2 mmol/L (3.5-4.5)
[2021-05-22 07:20] VITALS: BP 148/80; PULSE 74; TEMP 98.2
[2021-05-22 07:49] LABS: HEMATOCRIT 34.1 % (37.0-47.0)
--- NOTE | 2021-05-22 10:00 | NUR ---
Patient alert and oriented, answers questions appropriately. See assessment. RLE with 1+ edema noted to knee, pulses palpable, sensation intact, no c/o numbness or tingling. FWB with walker. No c/o pain or discomfort.
[2021-05-22 11:22] VITALS: BP 139/54; PULSE 83; TEMP 98.7
[2021-05-22 15:09] VITALS: BP 139/67; PULSE 77; TEMP 98.5
[2021-05-22 19:59] VITALS: BP 154/74; PULSE 73; TEMP 98.6
[2021-05-23 00:22] VITALS: BP 167/79; PULSE 80; TEMP 98.2
[2021-05-23 04:25] VITALS: BP 167/78; PULSE 77; TEMP 98.1
--- NOTE | 2021-05-23 06:27 | NUR ---
INDEPENDENT IN ROOM. OXYCODONE AT H.S. NO N/V. RLE REMAINS EDEMATOUS. NO UNUSUAL REDNESS TO RLE.
--- NOTE | 2021-05-23 07:23 | NUR ---
Pt. progressing w/ plan of care. Pt. awake in bed, requesting crackers. Pt. reports knee pain is tolerable, 3/10 at this time. Assessment complete. Needs addressed, call light and belongings in reach.
[2021-05-23 07:37] LABS: HEMOGLOBIN 10.9 g/dl (12.5-16.0); MEAN CELL VOLUME 85 fl (80.0-100.0); MEAN CORPUSCULAR HEMOGLOBIN 28 pg (27.0-31.0); MEAN CORPUSCULAR HGB CONC 33 g/dl (33.0-37.0); MEAN PLATELET VOLUME 10.5 fl (7.4-10.4); PLATELET COUNT 256 K/mm3 (130-400); RED BLOOD COUNT 3.93 M/mm3 (4.10-5.30); REDCELL DISTRIBUTION WIDTH-CV 15.3 % (11.5-14.5)
[2021-05-23 07:58] LABS: HEMATOCRIT 33.5 % (37.0-47.0)
[2021-05-23 08:00] VITALS: BP 172/76; PULSE 81; TEMP 98.2
[2021-05-23 08:04] LABS: CALCIUM 8.5 mg/dL (8.4-10.2); CREATININE, serum 0.6 mg/dL (0.57-1.11); POTASSIUM 3.6 mmol/L (3.5-4.5)
--- NOTE | 2021-05-23 09:24 | NUR ---
Pt. getting PICC line at this time. Pt. reported GI upset this AM, tums provided. Pt. denies nausea but pt. was having difficulty describing how her stomach felt. Pt. requesting to take her medications after the PICC line is placed.
[2021-05-23 09:43] VITALS: BP 155/73
--- NOTE | 2021-05-23 10:30 | NUR ---
Pt. reports sometimes the potassium drink upsets her stomach. Pt. would like to take PO potassium rather than a potassium drink. MICHAEL Baer notified, PA reports she will look into pt.'s chart further when they round this AM.
[2021-05-23] MEDS ORDERED: ROCEPHIN 2GM VIAL21 IJ ×2 (11:31→16:10)
[2021-05-23] MEDS ORDERED: ROXICODONE 55 MG/TAB PO (11:31)
[2021-05-23] MEDS ORDERED: TYLENOL 500MG500 MG PO (11:32)
[2021-05-23 12:00] VITALS: BP 147/59; PULSE 89; TEMP 98.3
--- NOTE | 2021-05-23 13:54 | NUR ---
Tinsmith Apprentice attended clinical rounds with the team and patient is ready for discharge today. Patient had PICC placed this morning and will need six weeks of IV Rocephin. SCARLETT met with patient who would like to complete this antibiotic course [facility] an outpatient [facility]. Patient states she has medical transport through her Medicaid and also has friends that can take her if needed. Patient also needs a front wheeled walker and is agreeable to have it ordered through [facility]. SCARLETT contacted the [facility] and scheduled daily appointments for 0800 starting tomorrow. SW provided this appointment time to patient. SCARLETT faxed referral and orders to the [facility]. SCARLETT also contacted Belén at [facility] and sent referral and order for FWW, which was delivered up to patient's room prior to discharge. Discharge Plan: Home
--- NOTE | 2021-05-23 17:42 | NUR ---
Pt. to be discharged home. PICC line to R arm in place. All paperwork reviewed w/ the patient. All questions answered. Pt. agreeable w/ plan of care.
--- NOTE | 2021-05-23 17:58 | NUR ---
Pt. left floor via wheelchair w/ JUDY Manuel.
== END 2021-05-23 18:02 | disposition home or self-care (01) | DRG 559 ==
LOC: COL.ER 12:20 → SURG 17:31
PROVIDERS: Nurse Practitioner Family; Personal Emergency Response Attendant; Physician Assistant; ADMIT Internal Medicine
DX: T84.53XA Infection and inflammatory reaction due to internal right knee prosthesis, initial encounter (principal); A41.9 Sepsis, unspecified organism; E87.1 Hypo-osmolality and hyponatremia; E87.2 Acidosis; I10 Essential (primary) hypertension; E78.5 Hyperlipidemia, unspecified; M06.9 Rheumatoid arthritis, unspecified; K21.9 Gastro-esophageal reflux disease without esophagitis; E03.9 Hypothyroidism, unspecified; F32.A Depression, unspecified; F41.9 Anxiety disorder, unspecified; Z86.14 Personal history of Methicillin resistant Staphylococcus aureus infection; J45.909 Unspecified asthma, uncomplicated; G43.909 Migraine, unspecified, not intractable, without status migrainosus; D47.2 Monoclonal gammopathy; M48.00 Spinal stenosis, site unspecified; Z98.51 Tubal ligation status; Z98.1 Arthrodesis status; Z96.651 Presence of right artificial knee joint; E87.6 Hypokalemia
CPT/HCPCS: 99223-AI; 99232-AI; 99233-AI; 99239; A9585; C1751; J0696; J2270; J2405; J2543; J3370; J7030; J7050; Q9967

== ENCOUNTER 2021-06-29 08:00 | Outpatient (RCR) | payer MEDICARE, MEDICAID ==
[2021-06-18 09:41] VITALS: BP 130/70; PULSE 80; TEMP 98.3
[2021-06-19 08:15] VITALS: BP 100/59; PULSE 63; TEMP 98.5
[2021-06-20 08:52] VITALS: BP 177/76; PULSE 85; TEMP 98.1
[2021-06-20 08:59] LABS: BASO # 0.1 K/mm3 (0.0-0.2); BASO % 0.7 % (0.0-2.0); EOS % 0.2 % (0.0-4.0); GRAN # 10.1 K/mm3 (1.4-6.5); GRAN % 79.3 % (42.2-75.2); HEMOGLOBIN 11.2 g/dl (12.5-16.0); LYMPH # 1.4 K/mm3 (1.2-3.4); LYMPH % 10.6 % (20.0-51.0); MEAN CELL VOLUME 85 fl (80.0-100.0); MEAN CORPUSCULAR HEMOGLOBIN 27 pg (27-31); MEAN CORPUSCULAR HGB CONC 32 g/dl (33.0-37.0); MEAN PLATELET VOLUME 8.8 fl (7.4-10.4); MONO # 1.1 K/mm3 (0.1-0.6); MONO % 8.7 % (1.7-9.3); PLATELET COUNT 414 K/mm3 (130-400); RED BLOOD COUNT 4.16 M/mm3 (4.10-5.30); REDCELL DISTRIBUTION WIDTH-CV 16.9 % (11.5-14.5)
[2021-06-20 09:02] LABS: HEMATOCRIT 35.5 % (37.0-47.0)
[2021-06-20 09:25] LABS: ALBUMIN 2.5 gm/dL (3.4-4.8); BILIRUBIN,TOTAL 0.3 mg/dL (0.2-1.2); C-REACTIVE PROTEIN 2.31 mg/dL (0.00-0.50); CALCIUM 8.3 mg/dL (8.4-10.2); CREATININE, serum 0.63 mg/dL (0.57-1.11); POTASSIUM 3.4 mmol/L (3.5-4.5); TOTAL PROTEIN 6.3 gm/dL (6.2-8.1)
[2021-06-20 09:35] LABS: ERYTHROCYTE SEDIMENTATION RATE 20 mm/hr (0-30)
[2021-06-21 07:49] VITALS: BP 87/56; PULSE 85; TEMP 98.3
[2021-06-22 08:39] VITALS: BP 109/72; PULSE 78; TEMP 98.2
[2021-06-23 08:00] VITALS: BP 140/72; PULSE 71; TEMP 98.4
[2021-06-24 08:07] VITALS: BP 111/64; PULSE 85; TEMP 99.5
[2021-06-25 08:29] VITALS: BP 107/67; PULSE 87; TEMP 98.7
[2021-06-26 08:50] VITALS: BP 107/67; PULSE 71; TEMP 98.7
[2021-06-27 07:59] VITALS: BP 112/75; PULSE 67; TEMP 98.5
[2021-06-27 08:08] LABS: BASO % 0.5 % (0.0-2.0); EOS # 0.1 K/mm3 (0.0-0.7); EOS % 1.9 % (0.0-4.0); GRAN # 2.8 K/mm3 (1.4-6.5); GRAN % 50.2 % (42.2-75.2); HEMOGLOBIN 11.3 g/dl (12.5-16.0); LYMPH # 1.7 K/mm3 (1.2-3.4); LYMPH % 30.7 % (20.0-51.0); MEAN CELL VOLUME 85 fl (80.0-100.0); MEAN CORPUSCULAR HEMOGLOBIN 27 pg (27-31); MEAN CORPUSCULAR HGB CONC 32 g/dl (33.0-37.0); MEAN PLATELET VOLUME 9.2 fl (7.4-10.4); MONO # 0.9 K/mm3 (0.1-0.6); MONO % 16.3 % (1.7-9.3); PLATELET COUNT 429 K/mm3 (130-400); RED BLOOD COUNT 4.21 M/mm3 (4.10-5.30); REDCELL DISTRIBUTION WIDTH-CV 17.1 % (11.5-14.5)
[2021-06-27 08:10] LABS: HEMATOCRIT 35.6 % (37.0-47.0)
[2021-06-27 08:24] LABS: ALBUMIN 2.4 gm/dL (3.4-4.8); BILIRUBIN,TOTAL 0.5 mg/dL (0.2-1.2); C-REACTIVE PROTEIN 2.42 mg/dL (0.00-0.50); CALCIUM 7.8 mg/dL (8.4-10.2); CREATININE, serum 0.63 mg/dL (0.57-1.11); POTASSIUM 3.1 mmol/L (3.5-4.5)
[2021-06-27 08:40] LABS: ERYTHROCYTE SEDIMENTATION RATE 21 mm/hr (0-30)
[2021-06-28 08:23] VITALS: BP 108/62; PULSE 69; TEMP 98.2
[~2021-06-29] VITALS: Ht 162.6 cm; Wt 80.7 kg
[~2021-06-29 08:00] MED LIST changes: +LEVOXYL0.075 MG PO; +LIPITOR20 MG PO; +MUCUS RELIEF400 M1 PO; +PROAIR HFA0.09 MG/AC IH; +PROBIOTIC BLEN1 EACH PO; +ROCEPHIN 2GM VIAL21 IJ; +ROXICODONE 55 MG/TAB PO; +ULTRAM 50MG TAB50 MG PO; +WELLBUTRIN XL150 MG PO
[2021-06-29 09:55] VITALS: BP 135/79; PULSE 80; TEMP 98
== END 2021-06-29 09:55 | disposition home or self-care (01) ==
LOC: EUO 08:00
PROVIDERS: Family Medicine
DX: Z51.81 Encounter for therapeutic drug level monitoring (principal)
CPT/HCPCS: J0696

== ENCOUNTER → 2022-04-14 | Outpatient (CLI) | payer MEDICARE, MEDICAID | LOC: MC.RAD 09:45 | DX: Z12.31 Encounter for screening mammogram for malignant neoplasm of breast (principal) ==

== ENCOUNTER → 2023-12-04 | Outpatient (CLI) | payer MEDICARE, MEDICAID | LOC: MC.RAD 11-02 11:00 | DX: Z12.31 Encounter for screening mammogram for malignant neoplasm of breast (principal) ==